=== PATIENT | male | born 1955 | race Caucasian/White ===

== ENCOUNTER 2019-10-30 15:08 | Outpatient (CLI) | payer BC ==
--- NOTE | 2019-10-30 15:56 | RAD ---
PA AND LATERAL VIEWS CHEST: HISTORY: Right sided chest pain. FINDINGS: Comparison is made with the exam of 02/15/2016. The heart size is normal. The lungs are expanded without focal areas of consolidation, pneumothorace s, or pleural effusions. IMPRESSION: No radiographic evidence of acute cardiopulmonary process. POS: OFF
== END 2019-10-30 15:09 | disposition home or self-care (01) ==
LOC: BICRAD 15:08
PROVIDERS: ATTEND Family Medicine
DX: R06.02 Shortness of breath (principal)
CPT/HCPCS: 71046

== ENCOUNTER 2021-06-20 08:18 | Outpatient (CLI) | payer MEDICARE, BC | END 2021-06-20 08:19 | disposition home or self-care (01) | LOC: RAD 08:18 | PROVIDERS: ATTEND Internal Medicine Critical Care Medicine | DX: R06.00 Dyspnea, unspecified (principal) | CPT/HCPCS: 71046 ==